=== PATIENT | male | born 1975 | race Caucasian/White ===

== ENCOUNTER 2018-03-21 19:06 | Emergency (ER) | payer OTHER ==
[2018-03-21] MEDS ORDERED: Bupivacaine 0.5% 30 ML SDV INFILT ONE (19:07)
--- NOTE | 2018-03-21 20:02 | EDM.PDOC ---
ED HPI GENERAL MEDICAL PROBLEM - General Chief Complaint: Laceration Stated Complaint: LIP LAC Time Seen by Provider: 03/21/18 19:10 Source of Information: Reports: Patient, Family History Limitations: Reports: No Limitations - History of Present Illness INITIAL COMMENTS - FREE TEXT/NARRATIVE: 42 y.o.w.m came with his family to the ED after a board fell on his mid upper lip while doing work at home. No LOC no other acute injuries. 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 BP 139/82 pulse 82 RR 18 Pulse ox 98% on RA Temp 36.8 Onset Date: 03/21/18 Onset Time: 18:20 Duration: Minutes:, Constant Location: Reports: Face Quality: Reports: Ache, Burning, Dull Severity: Mild Improves with: Reports: Rest Worsens with: Reports: Movement Context: Reports: Trauma (mid upper lip LAC after a board fell on his face) Associated Symptoms: Reports: No Other Symptoms - Related Data Allergies Allergy/AdvReac Type Severity Reaction Status Date / Time Penicillins Allergy Hives Verified 03/21/18 19:35 bee stings Allergy Anaphylactic Uncoded 03/21/18 19:36 Shock Home Meds: Home Meds Ascorbate Calcium [Vitamin C] 500 mg PO DAILY 03/21/18 [History] Cetirizine [ZyrTEC] 10 mg PO DAILY 03/21/18 [History] Citalopram Hydrobromide [Celexa] 10 mg PO DAILY 03/21/18 [History] EPINEPHrine [Epipen] 0.3 mg IM ASDIRECTED PRN 03/21/18 [History] Multivitamin [Multivitamins] 1 each PO DAILY 03/21/18 [History] Ubidecarenone [Coq-10] 100 mg PO DAILY 03/21/18 [History] atorvaSTATin [Lipitor] 10 mg PO DAILY 03/21/18 [History] ED ROS GENERAL - Review of Systems Review Of Systems: See Below Constitutional: Reports: No Symptoms HEENT: Reports: Other (Lip Laceration) Respiratory: Reports: No Symptoms Cardiovascular: Reports: No Symptoms Endocrine: Reports: No Symptoms GI/Abdominal: Reports: No Symptoms : Reports: No Symptoms Musculoskeletal: Reports: No Symptoms Skin: Reports: Wound (lip LAC) Neurological: Reports: No Symptoms Psychiatric: Reports: No Symptoms Hematologic/Lymphatic: Reports: No Symptoms Immunologic: Reports: No Symptoms ED EXAM, SKIN/RASH Exam: See Below Exam Limited By: No Limitations General Appearance: Alert, WD/WN, Mild Distress Eye Exam: Bilateral Eye: Normal Inspection Ears: Normal External Exam, Normal Canal, Hearing Grossly Normal Nose: Normal Inspection, Normal Mucosa, No Blood Throat/Mouth: Normal Inspection, Normal Lips, Normal Oropharynx, Normal Voice, No Airway Compromise Head: Atraumatic, Normocephalic Neck: Normal Inspection, Supple, Non-Tender, Full Range of Motion Respiratory/Chest: No Respiratory Distress, Lungs Clear, Normal Breath Sounds, No Accessory Muscle Use, Chest Non-Tender Cardiovascular: Normal Peripheral Pulses, Regular Rate, Rhythm, No Edema, No Gallop, No JVD, No Murmur, No Rub GI/Abdominal: Normal Bowel Sounds, Soft, Non-Tender, No Organomegaly (Male) Exam: Deferred Rectal (Males) Exam: Deferred Back Exam: Normal Inspection, Full Range of Motion Extremities: Normal Inspection, Normal Range of Motion, Non-Tender, No Pedal Edema, Normal Capillary Refill Neurological: Alert, Oriented, CN II-XII Intact, Normal Cognition, Normal Gait, No Motor/Sensory Deficits Psychiatric: Normal Affect, Normal Mood Skin: Warm, Dry, Normal Color, No Rash, Wound/Incision (Mid upper LIP LAC) Location, Skin: Face Characteristics: Other (Laceration) Associated features: Warmth Lymphatic: No Adenopathy ED SKIN PROCEDURES - Laceration/Wound Repair Upper Mouth Lac/Wound length In cm: 1.5 (mid uppe rlip) Appearance: Superficial, Mildly Contaminated Distal NVT: Neuro & Vascular Intact, No Tendon Injury Anesthetic Type: Local Local Anesthesia - Bupivicaine (Marcaine): 0.5% Plain Local Anesthetic Volume: 2cc Skin Prep: Providone-Iodine (Betadine) Saline Irrigation (cc's): 2 Exploration/Debridement/Repair: Wound Explored, In a Bloodless Field, Explored to Base Closed with: Sutures Suture Size: 4-0 # of Sutures: 3 Suture Type: Silk (absorbable) Drain Placement: No Sterile Dressing Applied: Nurse Tetanus Status Addressed: Yes (UTD) Complications: No Course - Vital Signs Text/Narrative:: 42 y.o.w.m came with his family to the ED after a board fell on his mid upper lip while doing work at home. No LOC no other acute injuries. 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 BP 139/82 pulse 82 RR 18 Pulse ox 98% on RA Temp 36.8 PE: 42 y.o.w.m with an upper LIP LAC. Procedure: Please see note above Impression: Mid upper lip 1,5 cm, repaired in ED Tx: Wound care Reexam: improved Plan: D/C with instructions Last Recorded V/S: Last Vital Signs Temp 36.6 C 03/21/18 19:10 Pulse 80 03/21/18 20:10 Resp 15 03/21/18 20:10 BP 134/82 03/21/18 20:10 Pulse Ox 98 03/21/18 20:10 Departure - Departure Time of Disposition: 20:02 Disposition: Home, Self-Care 01 Condition: Good Clinical Impression: Lip laceration Qualifiers: Encounter type: initial encounter Qualified Code(s): S01.511A - Laceration without foreign body of lip, initial encounter - Discharge Information Referrals: Donald Wood MD [Primary Care Provider] - Forms: ED Department Discharge Additional Instructions: Please apply neosporine ointment to the affected area, motrin for pain, Wound check in in 1-2 days, sutures are self absorbable, Please come back if your symptoms get worse acutely.
== END 2018-03-21 20:15 | disposition home or self-care (01) ==
LOC: FB.ED 19:06
DX: S01.511A Laceration without foreign body of lip, initial encounter (principal); Z79.899 Other long term (current) drug therapy; Z88.0 Allergy status to penicillin; Z91.030 Bee allergy status; W20.8XXA Other cause of strike by thrown, projected or falling object, initial encounter; Y99.0 Civilian activity done for income or pay
CPT/HCPCS: 12011; 99282

== ENCOUNTER 2019-07-18 19:44 | Emergency (ER) | payer OTHER ==
[2019-07-18] MEDS ORDERED: Alum Hydroxide/Mag Hydroxide 15 ML, Lidocaine 2% 15 ML PO ONE ×2 (19:54)
--- NOTE | 2019-07-18 20:23 | EDM.PDOC ---
ED HPI GENERAL MEDICAL PROBLEM - General Chief Complaint: Chest Pain Stated Complaint: CHEST PAIN Time Seen by Provider: 07/18/19 19:50 Source of Information: Reports: Patient - History of Present Illness INITIAL COMMENTS - FREE TEXT/NARRATIVE: Patient is a 44 yo WM who presented to the ED because of sudden onset of epigastrin and sternal pain at 1330 today. The pain is sharp,3/10. denies any N/ V,dyspnea or diaphoresis. He had the same episode in May 2019 but he never had a follow up with his PMD. upper mid abd Pain Score (Numeric/FACES): 7 - Related Data Allergies Allergy/AdvReac Type Severity Reaction Status Date / Time Penicillins Allergy Hives Verified 07/18/19 19:55 bee stings Allergy Anaphylactic Uncoded 03/21/18 19:36 Shock Home Meds: Home Meds Ascorbate Calcium [Vitamin C] 500 mg PO DAILY 03/21/18 [History] Cetirizine [ZyrTEC] 10 mg PO DAILY 03/21/18 [History] Citalopram Hydrobromide [Celexa] 10 mg PO DAILY 03/21/18 [History] EPINEPHrine [Epipen] 0.3 mg IM ASDIRECTED PRN 03/21/18 [History] Multivitamin [Multivitamins] 1 each PO DAILY 03/21/18 [History] Ubidecarenone [Coq-10] 100 mg PO DAILY 03/21/18 [History] atorvaSTATin [Lipitor] 10 mg PO DAILY 03/21/18 [History] Past Medical History HEENT History: Reports: Other (See Below) Other HEENT History: History of wisdom teeth extraction. Cardiovascular History: Reports: High Cholesterol Other Musculoskeletal History: History of right shoulder injury. Psychiatric History: Reports: Depression Social & Family History - Tobacco Use Smoking Status *Q: Never Smoker ED ROS GENERAL - Review of Systems Review Of Systems: See Below Constitutional: Reports: No Symptoms HEENT: Reports: No Symptoms Respiratory: Reports: No Symptoms Cardiovascular: Reports: No Symptoms Endocrine: Reports: No Symptoms GI/Abdominal: Reports: Other (epigastric pain) : Reports: No Symptoms Musculoskeletal: Reports: No Symptoms Skin: Reports: No Symptoms Neurological: Reports: No Symptoms Hematologic/Lymphatic: Reports: No Symptoms ED EXAM, GENERAL - Physical Exam Exam: See Below Exam Limited By: No Limitations General Appearance: Alert Eye Exam: Bilateral Eye: PERRL Ears: Normal External Exam, Normal Canal Ear Exam: Bilateral Ear: Auricle Normal, Canal Normal, TM normal Nose: Normal Inspection, Normal Mucosa Throat/Mouth: Normal Inspection Head: Atraumatic Neck: Normal Inspection, Supple Respiratory/Chest: No Respiratory Distress, Lungs Clear, Normal Breath Sounds Cardiovascular: Normal Peripheral Pulses, Regular Rate, Rhythm, No Edema, No Gallop, No JVD, No Murmur, No Rub GI/Abdominal: Normal Bowel Sounds, Soft, Non-Tender, No Organomegaly, No Distention (Male) Exam: Deferred Rectal (Males) Exam: Normal Exam, Deferred Back Exam: Normal Inspection EKG INTERPRETATION EKG Date: 07/18/19 ST-T: Depressed EKG Interpretation Comments: Flat T waves taniya 1,111,v1 and v5 Course - Vital Signs Text/Narrative:: labs and EKG discussed with patient ASA 324 mg po x1 GI cocktail dontae some relief of his pain Last Recorded V/S: Last Vital Signs Temp 36.6 C 07/18/19 19:44 Pulse 73 07/18/19 19:44 Resp 17 07/18/19 19:44 BP 141/82 H 07/18/19 19:44 Pulse Ox 98 07/18/19 19:44 - Orders/Labs/Meds Orders: Active Orders 24 hr Category Date Time Status EKG Documentation Completion [RC] ASDIRECTED Care 07/18/19 19:54 Active EKG 12 Lead [EK] Routine Ther 07/18/19 19:54 Ordered Labs: Laboratory Tests 07/18/19 07/18/19 07/18/19 Range/Units 20:00 20:00 20:00 WBC 7.2 (4.5-12.0) X10-3/uL RBC 4.77 (4.30-5.75) x10(6)uL Hgb 14.8 (13.5-17.8) g/dL Hct 43.7 (30.0-51.3) % MCV 91.5 (80-96) fL MCH 31.1 (27.7-33.6) pg MCHC 34.0 (32.2-35.4) g/dL RDW 12.6 (11.5-15.5) % Plt Count 237 (125-369) X10(3)uL MPV 7.6 (7.4-10.4) fL Neut % (Auto) 54.7 (46-82) % Lymph % (Auto) 35.7 (13-37) % [place] % (Auto) 6.3 (4-12) % Eos % (Auto) 2 (1.0-5.0) % Baso % (Auto) 2 (0-2) % Neut # (Auto) 3.9 (1.6-8.3) # Lymph # (Auto) 2.6 (0.6-5.0) # [place] # (Auto) 0.5 (0.0-1.3) # Eos # (Auto) 0.1 (0.0-0.8) # Baso # (Auto) 0.1 (0.0-0.2) # Sodium 141 (135-145) mmol/L Potassium 3.7 (3.5-5.3) mmol/L Chloride 102 (100-110) mmol/L Carbon Dioxide 32 (21-32) mmol/L BUN 16 (7-18) mg/dL Creatinine 1.2 (0.70-1.30) mg/dL Est Cr Clr Drug Dosing 79.37 mL/min Estimated GFR (MDRD) > 60 (>60) BUN/Creatinine Ratio 13.3 (9-20) Glucose 146 H (80-116) mg/dL Calcium 9.3 (8.6-10.2) mg/dL Troponin I < 0.017 L (<0.017-0.056) ng/mL Meds: Medications Discontinued Medications Generic Name Dose Route Start Last Admin Trade Name Randolph PRN Reason Stop Dose Admin Aspirin 324 mg 07/18/19 20:28 07/18/19 20:31 Aspirin PO 07/18/19 20:29 324 mg ONETIME ONE Administration Al Hydroxide/Mg Hydroxide 15 0 ml 07/18/19 19:54 07/18/19 19:57 ml/ Lidocaine HCl 15 ml PO 07/18/19 19:55 30 ml ONETIME ONE Administration Departure - Departure Time of Disposition: 20:20 Disposition: Home, Self-Care 01 Condition: Good Clinical Impression: Chest pain Instructions: Angina Pectoris, [id number] Referrals: Donald Wood MD [Primary Care Provider] - Forms: ED Department Discharge Additional Instructions: Follow up with your doctor for your chest pain,we don't do follow up in the ER - Problem List & Annotations (1) Chest pain SNOMED Code(s): 08598588 Code(s): R07.9 - CHEST PAIN, UNSPECIFIED Status: Acute Current Visit: Yes - Problem List Review Problem List Initiated/Reviewed/Updated: Yes - My Orders Last 24 Hours: My Active Orders 07/18/19 19:54 EKG Documentation Completion [RC] ASDIRECTED EKG 12 Lead [EK] Routine - Assessment/Plan Last 24 Hours: My Active Orders 07/18/19 19:54 EKG Documentation Completion [RC] ASDIRECTED EKG 12 Lead [EK] Routine
[2019-07-18] MEDS ORDERED: Aspirin 81 MG Tab.Chew PO ONE (20:28)
== END 2019-07-18 20:45 | disposition home or self-care (01) ==
LOC: FB.ED 19:44
DX: R07.9 Chest pain, unspecified (principal); E78.00 Pure hypercholesterolemia, unspecified; F32.9 Major depressive disorder, single episode, unspecified; Z88.0 Allergy status to penicillin; Z91.030 Bee allergy status; Z79.899 Other long term (current) drug therapy
CPT/HCPCS: 36415; 80048; 84484; 85025; 93005; 99285; A9270

== ENCOUNTER 2022-04-11 08:02 | Day surgery (SDC) | payer OTHER ==
[2022-04-11] MEDS ORDERED: Midazolam 1 MG/ML 2 ML SDV IV ONE (08:03)
[2022-04-11] MEDS ORDERED: Propofol 200 MG/20 ML SDV IV ONE (08:03)
[2022-04-11] MEDS ORDERED: Lactated Ringers 1,000 ML IV SCH (08:15)
[2022-04-11] MEDS ORDERED: Sodium Chloride 0.9% 10 ML Syringe FLUSH PRN (08:15)
== END 2022-04-11 10:20 | disposition home or self-care (01) ==
LOC: FB.SDS 08:02
PROVIDERS: ATTEND Surgery
DX: K92.1 Melena (principal); I10 Essential (primary) hypertension; E78.5 Hyperlipidemia, unspecified; Z80.0 Family history of malignant neoplasm of digestive organs; Z86.010 Personal history of colon polyps; K40.90 Unilateral inguinal hernia, without obstruction or gangrene, not specified as recurrent; Z88.0 Allergy status to penicillin; Z91.030 Bee allergy status; Z79.899 Other long term (current) drug therapy; Z87.891 Personal history of nicotine dependence
CPT/HCPCS: 00811; 45378; J2250; J2704; J7120

== ENCOUNTER 2023-08-28 07:41 | Emergency (ER) | payer OTHER ==
[2023-08-28 08:23] LABS: BASOPHILS ABSOLUTE AUTO 0.1 x10-3/uL (0.0-0.3); BASOPHILS PERCENT AUTO 0.5 % (0.3-3.8); EOSINOPHILS ABSOLUTE AUTO 0.1 x10-3/uL (0.0-0.6); EOSINOPHILS PERCENT AUTO 0.7 % (0.1-6.8); HEMATOCRIT 43.1 % (38.3-50.1); HEMOGLOBIN 14.8 g/dL (12.9-17.7); LYMPHOCYTES ABSOLUTE AUTO 1.3 x10-3/uL (0.5-4.5); LYMPHOCYTES PERCENT AUTO 13.3 % (15.8-45.3); MEAN CORPUSCULAR HEMOGLOBIN 31.1 pg (27.0-33.3); MEAN CORPUSCULAR HGB CONC 34.3 g/dL (28.7-35.3); MEAN CORPUSCULAR VOLUME 90.7 fL (80.8-98.7); MEAN PLATELET VOLUME 7.6 fL (6.7-11.0); MONOCYTES ABSOLUTE AUTO 0.6 x10-3/uL (0.0-1.2); MONOCYTES PERCENT AUTO 5.6 % (5.5-15.2); NEUTROPHILS ABSOLUTE AUTO 7.8 x10-3/uL (1.7-6.9); NEUTROPHILS PERCENT AUTO 79.9 % (40.3-71.8); PLATELET COUNT,PLT 206 x10(3)uL (117-477); RED BLOOD CELL COUNT 4.75 x10(6)uL (3.90-5.90); WHITE BLOOD CELL COUNT,WBC 9.8 x10-3/uL (3.2-10.1)
[2023-08-28 08:26] LABS: BLOOD UREA NITROGEN,BUN 13 mg/dL (7-18); BUN/CREATININE RATIO 11.8 (9-20); CALCIUM 9.1 mg/dL (8.6-10.2); CARBON DIOXIDE,CO2 30 mmol/L (21-32); CHLORIDE,CL 101 mmol/L (100-110); CREATININE 1.1 mg/dL (0.70-1.30); EST CRCL DRUG DOSING (CG) 83.02 mL/min; ESTIMATED GFR 83 mL/min (>60); GLUCOSE RANDOM 102 mg/dL (80-116); SODIUM,NA 138 mmol/L (135-145)
[2023-08-28 08:33] LABS: BILIRUBIN,URINE NEGATIVE (NEGATIVE); GLUCOSE,URINE NORMAL (NORMAL); KETONES,URINE NEGATIVE (NEGATIVE); LEUKOCYTE ESTERASE,URINE NEGATIVE (NEGATIVE); NITRITE,URINE NEGATIVE (NEGATIVE); OCCULT BLOOD,URINE NEGATIVE (NEGATIVE); PROTEIN,URINE NEGATIVE (NEGATIVE); UROBILINOGEN,URINE NORMAL (NEGATIVE)
[2023-08-28 08:38] LABS: APPEARANCE,URINE CLEAR (CLEAR); COLOR,URINE YELLOW (YELLOW); SQUAMOUS EPITHELIAL CELLS,UR RARE (NS,R,O)
[2023-08-28 08:39] LABS: BACTERIA,URINE FEW (NS)
[2023-08-28] MEDS ORDERED: Acetaminophen/HYDROcodone 325-5 MG Tab PO ONE (08:46)
== END 2023-08-28 09:05 | disposition home or self-care (01) ==
LOC: FB.ED 07:41
DX: N45.1 Epididymitis (principal); I10 Essential (primary) hypertension; E78.00 Pure hypercholesterolemia, unspecified; Z79.899 Other long term (current) drug therapy; Z88.0 Allergy status to penicillin; Z91.030 Bee allergy status
CPT/HCPCS: 36415; 74176; 80048; 81001; 85025; 99284; A9270